=== PATIENT | male | born 1995 | race Caucasian/White ===

== ENCOUNTER 2019-10-06 18:22 | Inpatient (IN) | payer SELFPAY ==
[~2019-10-06] VITALS: Ht 182.9 cm; Wt 63.6 kg
[~2019-10-06 18:22] MED LIST changes: -HYDR1TAB94 PO
--- NOTE | 2019-10-07 03:42 | NUR ---
SHIFT SUMMARY PT ADMITTED TO SURG FLOOR APPROX 2100. PT IS A/O X4 AND IND. IN ROOM. PT HAS NOT C/O PAIN OR NAUSEA SINCE ARRIVAL EXCEPT ABDOMINAL TENDERNESS WITH PALPATION. PT REPORTS VOIDING. BEFORE MIDNIGHT PT WAS TOLERATING CLEAR LIQUIDS WELL; HAS BEEN NPO SINCE MIDNIGHT PER ORDERS FOR POSSIBLE SURGERY TODAY. NO ACUTE CHANGES. ASSISTED WITH ADL'S PRN.
--- NOTE | 2019-10-07 12:57 | NUR ---
PT TO DAY SURGERY AT THIS TIME.
[2019-10-07] MEDS ORDERED: HYDR1TAB94 PO (16:48)
--- NOTE | 2019-10-07 17:29 | NUR ---
DISCHARGE SUMMARY PT GIVEN WRITTEN AND VERBAL DISCHARGE INSTRUCTIONS AND VERBALIZED UNDERSTANDING OF THESE INSTRUCTIONS. PT LOST IV ACCESS UPON ARRIVAL TO UNIT FROM PACU AND REFUSED ANOTHER IV INSERTION FOR IV ABX IF HE IS GOING TO DISCHARGE HOME, DR IBANEZ NOTIFIED AND IS OK TO DICHARGE WITH PTS MOST RECENT IV ABX DOSE BEING AP APROX 1500. PT CALLED FOR RIDE, WILL ASSIST PT TO CAR UPON DISCHARGE FROM UNIT.
== END 2019-10-07 17:50 | disposition home or self-care (01) | DRG 343 ==
LOC: ER 18:22 → SURS 18:23
PROVIDERS: ADMIT Surgery
PROC: 0DTJ4ZZ Resection of Appendix, Percutaneous Endoscopic Approach (ICD-10-PCS; principal; 2019-10-07 10:30)
DX: K35.80 Unspecified acute appendicitis (principal); F17.200 Nicotine dependence, unspecified, uncomplicated
CPT/HCPCS: 96361; 96365; 96366; 99284-25; G0378; J0461; J0694; J1100; J2250; J2405; J2704; J2710; J3010; J7120

== ENCOUNTER → 2019-10-06 | Outpatient (CLI) | payer SELFPAY ==
[~2019-10-06] MED LIST: HYDR1TAB94 PO; PROM6.25SY PO
[2019-10-06 14:22] LABS: BASOPHILS ABSOLUTE AUTO 0.06 K/mm3 (0.00-0.23); BASOPHILS PERCENT AUTO 0 % (0-2); EOSINOPHILS ABSOLUTE AUTO 0.01 K/mm3 (0.00-0.68); EOSINOPHILS PERCENT AUTO 0 % (0-6); Hematocrit 42.6 % (37.0-53.0); Hemoglobin 14.9 g/dL (13.5-17.5); IMMATURE GRAN PERCENT AUTO 1 % (0-1); LYMPHOCYTES ABSOLUTE AUTO 1.62 K/mm3 (0.84-5.20); LYMPHOCYTES PERCENT AUTO 9 % (21-46); MONOCYTES ABSOLUTE AUTO 0.73 K/mm3 (0.16-1.47); MONOCYTES PERCENT AUTO 4 % (4-13); Mean Corpuscular Volume 86 fL (80-100); Mean Platelet Volume 9.3 fL (9.1-12.4); NEUTROPHILS ABSOLUTE AUTO 15.34 K/mm3 (1.96-9.15); NEUTROPHILS PERCENT AUTO 86 % (41-73); Platelet Count 241 K/mm3 (150-400); RDW Coefficient Variation 13.2 % (11.7-14.2); RDW Standard Deviation 41.2 fL (35.1-46.3); Red Blood Cell Count 4.96 M/mm3 (4.30-5.90); White Blood Cell Count 17.86 K/mm3 (4.00-11.30)
[2019-10-06 14:42] LABS: Alanine Aminotransfer (ALT/SGP 15 U/L (12-78); Albumin, Blood 5.1 g/dL (3.4-5.0); Albumin/Globulin Ratio 1.7 (0.8-1.8); Alk Phos 80 U/L (40-126); Anion Gap 17 mmol/L (6-16); Aspartate Aminotrans (AST/SGOT 17 U/L (12-37); Blood Urea Nitrogen 21 mg/dL (8-24); Bun/Creatinine Ratio 20.4 (12.0-20.0); CO2, Blood 24 mmol/L (21-32); Chloride, Blood 102 mmol/L (98-108); Creatinine, Blood 1.03 mg/dL (0.60-1.20); Glomerular Filtration Rate >60 (60-); Glucose, Blood 160 mg/dL (70-99); Potassium, Blood 3.7 mmol/L (3.5-5.5); Sodium, Blood 143 mmol/L (136-145); Total Protein, Blood 8.1 g/dL (6.4-8.2)
== END | disposition home or self-care (01) ==
LOC: LAB EV 14:17 → LAB SHORT 14:17
PROVIDERS: Physician Assistant
DX: E16.2 Hypoglycemia, unspecified (principal); R10.9 Unspecified abdominal pain
CPT/HCPCS: 80053; 83036; 83690; 85025

== ENCOUNTER 2021-05-03 19:00 | Emergency (ER) | payer OTHER ==
[~2021-05-03] VITALS: Ht 182.9 cm; Wt 68.0 kg
[~2021-05-03 19:00] MED LIST changes: +HYDR1TAB94 PO
[2021-05-03 19:33] LABS: BASOPHILS ABSOLUTE AUTO 0.06 K/mm3 (0.00-0.23); BASOPHILS PERCENT AUTO 1 % (0-2); EOSINOPHILS PERCENT AUTO 0 % (0-6); Hematocrit 46.7 % (37.0-53.0); Hemoglobin 15.8 g/dL (13.5-17.5); IMMATURE GRAN ABSOLUTE AUTO 0.06 K/mm3 (0.00-0.10); IMMATURE GRAN PERCENT AUTO 1 % (0-1); LYMPHOCYTES ABSOLUTE AUTO 2.61 K/mm3 (0.84-5.20); LYMPHOCYTES PERCENT AUTO 20 % (21-46); MONOCYTES ABSOLUTE AUTO 1.15 K/mm3 (0.16-1.47); MONOCYTES PERCENT AUTO 9 % (4-13); Mean Corpuscular HGB 29.5 pg (26.0-34.0); Mean Corpuscular HGB Conc 33.8 g/dL (31.5-36.5); Mean Corpuscular Volume 87 fL (80-100); Mean Platelet Volume 9.2 fL (9.1-12.4); NEUTROPHILS ABSOLUTE AUTO 9.26 K/mm3 (1.96-9.15); NEUTROPHILS PERCENT AUTO 70 % (41-73); Platelet Count 286 K/mm3 (150-400); RDW Coefficient Variation 13.4 % (11.7-14.2); RDW Standard Deviation 42.7 fL (35.1-46.3); Red Blood Cell Count 5.36 M/mm3 (4.30-5.90); White Blood Cell Count 13.14 K/mm3 (4.00-11.30)
[2021-05-03 19:54] LABS: Alanine Aminotransfer (ALT/SGP 20 U/L (12-78); Albumin, Blood 4.3 g/dL (3.4-5.0); Albumin/Globulin Ratio 1.4 (0.8-1.8); Alk Phos 74 U/L (50-136); Anion Gap 8 mmol/L (6-16); Aspartate Aminotrans (AST/SGOT 16 U/L (12-37); Bilirubin, Total 1.1 mg/dL (0.1-1.0); Blood Urea Nitrogen 20 mg/dL (8-24); Bun/Creatinine Ratio 24.8 (12.0-20.0); CO2, Blood 21 mmol/L (21-32); Calcium, Blood 9.4 mg/dL (8.5-10.1); Chloride, Blood 108 mmol/L (98-108); Creatinine, Blood 0.81 mg/dL (0.60-1.20); Globulin, Blood 3.1 g/dL (2.2-4.0); Glomerular Filtration Rate >60 (60-); Glucose, Blood 111 mg/dL (70-99); Sodium, Blood 137 mmol/L (136-145); Total Protein, Blood 7.4 g/dL (6.4-8.2)
[2021-05-03] MEDS ORDERED: ONDA4ODT MM (20:09)
[2021-05-03] MEDS ORDERED: DICY20 PO (20:09)
== END 2021-05-03 20:20 | disposition home or self-care (01) ==
LOC: ER 19:00
PROVIDERS: Emergency Medicine
DX: K52.9 Noninfective gastroenteritis and colitis, unspecified (principal); R19.7 Diarrhea, unspecified; Z88.6 Allergy status to analgesic agent
CPT/HCPCS: 36415; 80053; 85025; 96374; 99284-25; A9270; J2405; J7120